=== PATIENT | male | born 1995 | race Caucasian/White ===

== ENCOUNTER 2023-11-27 08:52 | Emergency (ER) | payer OTHER ==
[2023-11-27] MEDS ORDERED: Acetaminophen 500 MG TAB ONE (09:07)
[2023-11-27] MEDS ORDERED: Ibuprofen 800 MG TAB ONE (09:07)
[2023-11-27] MEDS ORDERED: Boostrix 0.5 ML (Tdap) VIAL (>/=7 yrs of age) ONE (09:07)
== END 2023-11-27 09:45 | disposition home or self-care (01) ==
LOC: MADERS 08:52
DX: S80.812A Abrasion, left lower leg, initial encounter (principal); S60.512A Abrasion of left hand, initial encounter; S50.312A Abrasion of left elbow, initial encounter; F17.290 Nicotine dependence, other tobacco product, uncomplicated; Z23 Encounter for immunization; V89.2XXA Person injured in unspecified motor-vehicle accident, traffic, initial encounter
CPT/HCPCS: 90471; 90715